=== PATIENT | female | born 2005 | race American Indian/Alaskan Native ===

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

== ENCOUNTER 2025-01-16 07:11 | Emergency (ER) | payer SELFPAY ==
[2025-01-16] MEDS: Acetaminophen 500 MG Tab PO ONE (08:05)
[2025-01-16] MEDS: Ketorolac 30 MG/ML SDV IM ONE (08:05)
[2025-01-16] MEDS ORDERED: Acetaminophen 500 MG Tab ONE (08:15)
[2025-01-16 15:08] VITALS: BP 142/114; PULSE 104
== END 2025-01-16 09:05 | disposition home or self-care (01) ==
LOC: DL.ED 07:11
DX: M25.521 Pain in right elbow (principal); Z91.013 Allergy to seafood; W19.XXXA Unspecified fall, initial encounter
CPT/HCPCS: 73080-RT; 96372; 99282; 99283; A9270-GY; J1885